=== PATIENT | female | born 1955 | race Caucasian/White ===

== ENCOUNTER → 2019-10-21 10:47 | Outpatient (CLI) | payer MEDICARE, BC, SELFPAY ==
--- NOTE | ~2019-10-21 | XR_ITS ---
XR hip RT 2V w AP pelvis DATE: 10/21/2019 11:11 INDICATION: Right hip pain for 2 years, worsening TECHNIQUE: AP pelvis. AP and lateral views of right hip. COMPARISON: None FINDINGS: No pelvic fracture or bone destruction is detected. The pubic symphysis and sacroiliac join ts are intact. There is mild right hip joint space narrowing and mild periarticular spurring at the right hip joint, consistent with osteoarthritis. No fracture or dislocation, avascular necrosis or bone destruction o f the right hip is detected. IMPRESSION: Right hip osteoarthritis Reviewed, dictated and finalized at location B. TALLIER IMPRESSION: Right hip osteoarthritis
== END ==
PROVIDERS: PCP Family Medicine; Visit Provider Family Medicine
DX: G89.29 Other chronic pain (principal); M16.11 Unilateral primary osteoarthritis, right hip
CPT/HCPCS: 73502; 73521

== ENCOUNTER → 2019-12-01 12:06 | Outpatient (CLI) | payer MEDICARE, BC, SELFPAY ==
--- NOTE | ~2019-12-01 | DEXA_ITS ---
Bone Density Report Name: Willow Arrington Age: 64 Sex: Female Ethnicity: White Date of : 1955 Indication: postmenopausal; screening for osteoporosis; height loss; inflammatory bowel disease; asthma or emphysema; Referring Provider: PHYSICIAN NOT ON STAFF Study: Bone densitometry was performed. Exam Date: December 01, 2019 Accession number: [id number] Bone Density: Region BMD T-score Z-score Classification AP Spine (L3, L4) 0.811 -2.6 -0.8 Osteoporosis Femoral Neck (Left) 0.858 0.1 1.6 Normal Total Hip (Left) 1.055 0.9 2.2 Normal Femoral Neck (Right) 0.799 -0.4 1.1 Normal Total Hip (Right) 0.987 0.4 1.6 Normal Total Hip Mean 1.021 0.7 1.9 Normal World Health Organization criteria for BMD impression classify patients as: Normal (T-score at or above -1.0), Osteopenia (T-score between -1.0 and -2.5), or Osteoporosis (T-score at or below -2.5). 10-year Fracture Risk: FRAX not reported because: Some T-score for Spine Total or Hip Total or Femoral Neck at or below -2.5 Clinical Information Provided by Patient: Has used the following medications: Vitamin D Has the following medical conditions: Asthma or Emphysema, Inflammatory bowel diseases Patient maximum height was 66 Menopause Age: 50 No regular weight bearing exercise Drinks caffeinated beverages Onset of menses at age 12 Number of children 0 Impression: The patient has osteoporosis, based on the Total Spine T-score. Discussion: INCREASED RISK OF FRACTURE. BONE DENSITY IS UNDESIRABLY LOW AT ONE OR MORE SKELETAL SITES, CONSISTENT WITH POSTMENOPAUSAL OSTEOPOROSIS. This patient's lowest T-score meets the World Health Organization's (WHO) criteria for osteoporosis at one or more sites (T-score -2.5 or below). In untreated patients, the risk of osteoporotic fracture increases approximately two-fold for each 1.0 SD decrease in T-score. Low bone density is not the only risk factor for fracture; also consider factors such as patient's age, frailty or poor health, risk of falling, risk of injury, previous osteoporotic fracture, family history of osteoporosis, cigarette smoking, low body weight, etc. Not everyone with low bone mineral density has osteoporosis; osteomalacia and other metabolic bone disorders should also be considered. Patients who have osteoporosis should be evaluated for specific diseases and conditions (secondary causes) that may cause or contribute to bone loss. The [place] [employer]ocrinologists (AACE) and National Osteoporosis Foundation (NOF) recommend pharmacologic intervention for all postmenopausal women whose T-score is in this range. The patient should follow a healthful lifestyle (good nutrition with adequate calcium and vitamin D, and appropriate weight-bearing exercise). Follow-Up: Consider a repeat BMD
--- NOTE | ~2019-12-01 | MM_ITS ---
EXAMINATION: MM screening [facility] BI w christian HISTORY: Screening mammogram TECHNIQUE: Craniocaudal and mediolateral oblique 3-D tomosynthesis images were obtained and synthetic 2-D images were generated. CAD analysis was submitted and interpreted. COMPARISON: Comparison to multiple prior studies sequentially, with oldest reviewed study dated 03/08. BREAST PARENCHYMAL COMPOSITION: FINDINGS: No significant change to a circumscribed mass upper inner quadrant of the right breast dati ng back to 2009. There are benign bilateral breast calcifications. There is no evidence of suspicious mass, calcification, or architectural distortion to suggest malignancy in either breast. There has b een no suspicious interval change. IMPRESSION: 1. No mammographic evidence of malignancy. 2. Recommend routine screening mammography in one year. BI-RADS Category 2: Benign finding(s). Reviewed, dictated and finalized at location A.
== END ==
PROVIDERS: PCP Family Medicine; Visit Provider Obstetrics & Gynecology
DX: Z12.31 Encounter for screening mammogram for malignant neoplasm of breast (principal); Z78.0 Asymptomatic menopausal state; M81.0 Age-related osteoporosis without current pathological fracture
CPT/HCPCS: 77063; 77067; 77080

== ENCOUNTER 2020-04-07 15:16 | Outpatient (CLI) | payer MEDICARE, BC, SELFPAY ==
--- NOTE | ~2020-04-07 | US_ITS ---
EXAMINATION: US venous doppler LE RT DATE: 04/07/2020 15:56 INDICATION: Right lower limb pain TECHNIQUE: Gonsales scale images without and with compression and Doppler images of the right lower extre mity veins were obtained. COMPARISON: None FINDINGS: The right common femoral vein, profunda femoral vein, femoral vein, popliteal vein, peronea l trunk, posterior tibial veins, and greater saphenous vein are patent. IMPRESSION: 1. Patent right lower extremity veins. No evidence of deep venous thrombosis. Reviewed, dictated and finalized at location A.
--- NOTE | ~2020-04-07 | US_ITS ---
EXAMINATION: US soft tissue LE RT INDICATION: Right lower limb cellulitis TECHNIQUE: High-resolution ultrasound of the right lower extremity is performed in the area of clinic al concern. COMPARISON: None available FINDINGS: There is subcutaneous edema of the leg in the area of clinical concern. No focal cystic or solid mass is identified. There is no evidence of abscess. IMPRESSION: 1. Sonographic findings compatible with cellulitis in the area of clinical concern. Reviewed, dictated and finalized at location A. IMPRESSION: 1. Sonographic findings compatible with cellulitis in the area of clinical conc arnoldo.
== END 2020-04-07 15:17 | disposition home or self-care (01) ==
LOC: ANHIMG 15:26
PROVIDERS: PCP Family Medicine; Visit Provider Physician Assistant
DX: L03.115 Cellulitis of right lower limb (principal); M79.604 Pain in right leg; M79.89 Other specified soft tissue disorders
CPT/HCPCS: 76882; 93971

== ENCOUNTER → 2020-10-24 14:08 | Outpatient (CLI) | payer MEDICARE, BC, SELFPAY ==
--- NOTE | ~2020-10-24 | MR_ITS ---
EXAMINATION: MR foot RT wo con DATE: 10/24/2020 15:12 INDICATION: Right hallux ulcer TECHNIQUE: Magnetic resonance imaging (MRI) of the right fore/mid foot was performed without intraven ous contrast. Sequences included sagittal T1-weighted FSE, sagittal fluid sensitive FSE STIR, coronal PD-weighted FS FSE, coronal T1-weighted FSE, axial PD-weighted FS FSE, and axial PD-weighted FSE. COMPARISON: None FINDINGS: Alignment is normal. Mild bunion with mild hypertrophic and cystic change at the medial head of the f irst metatarsal. No fracture, osteolysis or other pathologic marrow replacing process. Mild to modera te polyarticular osteoarthritis most prominent at the talonavicular, navicular medial cuneiform, seco nd and third tarsal metatarsal and first metatarsophalangeal joints and to lesser degree at many of t he additional joints in the mid and forefoot. No abscess, joint effusions or other abnormal fluid col lections. Moderate fatty atrophy of the intrinsic musculature of the foot. The visualized portions of the flexor and extensor tendons as well as the Lisfranc ligament and lateral ligament complex appear grossly intact although assessment is moderately limited by small amount of motion artifact on multi ple sequences. IMPRESSION: 1. No osteomyelitis or abscess. 2. Mild to moderate polyarticular osteoarthritis in the mid and forefoot. Reviewed, dictated and finalized at location A. RVISOR CORRESPONDENCE SECTION
== END ==
PROVIDERS: PCP Family Medicine
DX: L97.519 Non-pressure chronic ulcer of other part of right foot with unspecified severity (principal); M19.071 Primary osteoarthritis, right ankle and foot
CPT/HCPCS: 73718

== ENCOUNTER → 2021-04-18 07:22 | Outpatient (CLI) | payer MEDICARE, BC, SELFPAY ==
--- NOTE | ~2021-04-18 | US_ITS ---
EXAMINATION: US abdomen complete DATE: 04/18/2021 09:03 INDICATION: Abdominal swelling, palpable abnormalities in the bilateral lower quadrants TECHNIQUE: Multiple grayscale and Doppler ultrasound images of the abdomen were obtained. COMPARISON: None available FINDINGS: No sonographic correlate is identified for the reported palpable abnormalities of the abdom en. The head, body, and tail of the pancreas are normal. There is a 3.5 x 2.6 cm hypoechoic lesion in the left hepatic lobe. The liver is otherwise normal with normal echogenicity and echotexture. No arriaza rface nodularity. Normal hepatopetal flow in the main portal vein. There are multiple stones in the g allbladder. No pericholecystic fluid or gallbladder wall thickening is identified. The normal common bile duct measures 4 mm. There was no sonographic Lawson sign. The visualized portions of the aorta a nd inferior vena cava are normal. The right kidney measures 10.9 x 5.2 x 5.5 cm. The left kidney measures 9.8 x 5 x 4.1 cm. The kidneys demonstrate normal parenchymal echogenicity. There is no hydronephrosis. The spleen is normal in denise earance and measures 11.1 cm. IMPRESSION: 1. No sonographic correlate identified for the reported palpable abnormalities of the abdomen. 2. Hypoechoic liver lesion which is likely benign in the absence of known malignancy. Recommend corre lation with any available prior outside imaging. If none is available further evaluation by MRI witho ut and with contrast is recommended. Reviewed, dictated and finalized at location A. IMPRESSION: 1. No sonographic correlate identified for the reported palpable abnormalities of the abdomen. 2. Hypoechoic liver lesion which is likely benign in the absence of known malig lilliam. Recommend correlation with any available prior outside imaging. If none is available further evaluation by MRI without and with contrast is recommended .
== END ==
PROVIDERS: PCP Family Medicine
DX: R19.03 Right lower quadrant abdominal swelling, mass and lump (principal); K76.9 Liver disease, unspecified
CPT/HCPCS: 76700

== ENCOUNTER 2021-04-27 13:50 | Outpatient (CLI) | payer MEDICARE, BC, SELFPAY ==
--- NOTE | ~2021-04-27 | CT_ITS ---
EXAMINATION: CT abdomen pelvis wo/w con DATE: 04/27/2021 14:27 INDICATION: Liver lesion TECHNIQUE: Computed tomography (CT) of the abdomen was performed without intravenous contrast. CT of the abdomen was then performed with a total of 100 mL Omnipaque 350 intravenous contrast in the arter ial and of the abdomen and pelvis in the portal venous phase. The dose-length product (DLP) was 3328. 36 mGy-cm. Automated exposure control and iterative reconstruction technique were employed. COMPARISON: Ultrasound, 04/18/2021 FINDINGS: There is a subtle geographic area left hepatic lobe corresponding to the abnormality of con cern on the comparison ultrasound which has a CT appearance suggestive of focal fatty sparing. No mirna picious liver mass is identified. Minimal dependent atelectasis is present in the lung bases. The hea rt size is normal. There is a small sliding hiatal hernia. The spleen, pancreas, gallbladder, and adr enal glands are normal. There is no free intraperitoneal gas or evidence of bowel obstruction. There are changes of right hip arthroplasty. There is mild lumbar spondylosis. IMPRESSION: 1. CT findings most consistent with focal fatty sparing of the liver accounting for the ultrasound le celia in question. Reviewed, dictated and finalized at location B. IMPRESSION: 1. CT findings most consistent with focal fatty sparing of the liver accounting for the ultrasound lesion in question.
== END 2021-04-27 13:51 | disposition home or self-care (01) ==
LOC: ANHIMG 13:51
PROVIDERS: PCP Family Medicine
DX: K76.9 Liver disease, unspecified (principal)
CPT/HCPCS: 74178; Q9967

== ENCOUNTER 2021-10-23 10:50 | Emergency (ER) | payer MEDICARE, BC, SELFPAY ==
--- NOTE | ~2021-10-23 | XR_ITS ---
EXAMINATION: XR chest 2V EXAM DATE: 10/23/2021 11:31 INDICATION: SOB; hx of asthma . TECHNIQUE: Frontal and lateral projections of the chest obtained and reviewed. Comparison is made to prior examination from 05/19/2019. FINDINGS: The lungs are clear. There are no pleural effusions. The cardiomediastinal silhouette is within normal limits. There is no pneumothorax suspected. The bones and soft tissues are unremarkab le. Probable small to moderate-sized gastroesophageal hiatal hernia. There is no significant interv al change. IMPRESSION: No acute cardiopulmonary findings. Probable small to moderate hiatal hernia. Reviewed, dictated and finalized at location B. MOBILE TECHNICIAN IMPRESSION: No acute cardiopulmonary findings. Probable small to moderate hiata l hernia.
[2021-10-23 11:01] VITALS: BP 108/75; PULSE 118; RESP 20; TEMP 37; O2SAT 100
--- NOTE | 2021-10-23 11:07 | ED.URI ---
HPI - URI/Sore Throat General Chief Complaint: Shortness of Breath/Dyspnea Stated Complaint: Cough Time Seen by Provider: 10/23/21 11:07 Source: patient and RN notes reviewed History of Present Illness HPI Narrative: Patient is 66-year-old female who presents the urgent care with complaints of chronic cough, shortness of breath and wheezing. Patient states her cough is nonproductive. Denies of any fevers, nausea, vomiting. Denies of any chest pain. States that she has not her doctor and was placed on a Z-Emmanuel and nebulizers without any improvement. Patient states that she is short of breath with any type of exertion. Patient states that her doctor recently decreased her Lasix because her swelling had improved . States that her doctor told her that her lungs are clear and her peak flow is normal and therefore chest x-ray is not necessary . Patient states over the last week her symptoms have just gotten worse. Patient states that her doctor told her to go to the emergency room . No other acute complaints. Patient is visibly short of breath with exertion. Patient aware of the plan of care. Some parts of this dictation were generated by voice recognition software and may contain typographical and/or grammatical inaccuracies. Related Data Home Medications Medication Instructions Recorded Confirmed ascorbic acid (vitamin C) 500 mg mg PO 07/29/19 10/10/21 capsule clonazepam 1 mg tablet 1 mg PO DAILY 07/29/19 10/10/21 cranberry 500 mg capsule 500 mg PO BID 07/29/19 10/10/21 esomeprazole magnesium 40 mg 40 mg PO DAILY 07/29/19 10/10/21 capsule,delayed release ferrous sulfate 325 mg (65 mg 325 mg PO DAILY 07/29/19 10/10/21 iron) tablet fluoxetine 20 mg capsule 20 mg PO DAILY 07/29/19 10/10/21 fluticasone 250 mcg-salmeterol 50 1 inhalation INHALATION BID 07/29/19 10/10/21 mcg/dose blistr powdr for inhalation mesalamine 1.2 gram tablet,delayed 2.4 gm PO DAILY 07/29/19 10/10/21 release cholecalciferol (vitamin D3) 50 2,000 unit PO DAILY 12/31/19 10/10/21 mcg (2,000 unit) tablet fluticasone propionate 50 1 spray NASAL BID ml 12/31/19 10/10/21 mcg/actuation nasal spray,suspension nortriptyline 50 mg capsule 50 mg PO . q.h.s. cap 12/31/19 10/10/21 fluticasone 100 mcg-salmeterol 50 1 inhalation INHALATION Q12H 04/15/20 10/10/21 mcg/dose blistr powdr for inhalation chlorthalidone 25 mg tablet 25 mg PO 3XW tablet 05/09/21 10/10/21 furosemide 20 mg tablet 40 mg PO QAM tablet 05/09/21 10/10/21 cyanocobalamin (vitamin B-12) 500 1,000 mcg PO DAILY tablet 10/10/21 10/10/21 mcg tablet Allergies Allergy/AdvReac Type Severity Reaction Status Date / Time Cephalosporins Allergy Mild Unknown Verified 10/23/21 11:08 Penicillins Allergy Mild Unknown Verified 10/23/21 11:08 amoxicillin Allergy Unknown Itching Verified 10/23/21 11:08 CYMBALTA Allergy Mild Unknown Uncoded 10/23/21 11:08 Review of Systems Review of Systems: CONSTITUTIONAL: Denies fever, chills, or sweats. EYES: Denies visual changes, redness, or discharge. ENT: Denies rhinorrhea, congestion, sore throat, or otalgia. CARDIOVASCULAR: Denies chest pain, palpitations, or edema. RESPIRATORY: Reports of nonproductive cough with intermittent dyspnea, at worst with exertion GASTROINTESTINAL: Denies abdominal pain, nausea, vomiting, or diarrhea. GENITOURINARY: Denies dysuria or hematuria. SKIN: Denies rash or itching. MUSCULOSKELETAL: Denies back pain, joint pain, or myalgia. NEUROLOGIC: Denies headache, numbness, or weakness. All other systems reviewed are negative, except as documented in HPI. [facility] Past Medical History Medical History (Updated 10/23/21 @ 11:52 by EDEN Mattson) Cellulitis of right leg Chronic right hip pain Diabetes mellitus with hyperglycemia, with long-term current use of insulin Diastolic CHF, chronic Edema, peripheral Leukocytosis Pharyngitis Vitamin B12 deficiency anemia (09/21/21) level low at 266 with goal grea
== END 2021-10-23 11:59 | disposition home or self-care (01) ==
PROVIDERS: Emergency Provider Nurse Practitioner Family; PCP Family Medicine
DX: R06.02 Shortness of breath (principal); R05.9 Cough, unspecified; E11.9 Type 2 diabetes mellitus without complications; I50.9 Heart failure, unspecified; D51.9 Vitamin B12 deficiency anemia, unspecified
CPT/HCPCS: 71046; 99213; G0463

== ENCOUNTER → 2022-05-10 12:39 | Outpatient (CLI) | payer MEDICARE, BC, SELFPAY ==
--- NOTE | ~2022-05-10 | MM_ITS ---
EXAMINATION: MM screening [facility] BI w christian HISTORY: Screening TECHNIQUE: Craniocaudal and mediolateral oblique 3-D tomosynthesis images were obtained and synthetic 2-D images were generated. CAD analysis was submitted and interpreted. COMPARISON: Comparison to multiple prior studies sequentially, with oldest reviewed study dated 10/2013. BREAST PARENCHYMAL COMPOSITION: There are scattered areas of fibroglandular density. FINDINGS: Stable right breast mass. There are benign bilateral breast calcifications. No new masses, clustered calcifications or architectural distortion in either breast to suggest malignancy. There is no evidence of suspicious mass, calcification, or architectural distortion to suggest malignancy in either breast. There has been no suspicious interval change. IMPRESSION: 1. No mammographic evidence of malignancy. 2. Recommend routine screening mammography in one year. BI-RADS Category 2: Benign finding(s). Reviewed, dictated and finalized at location A.
== END ==
PROVIDERS: PCP Family Medicine; Visit Provider Obstetrics & Gynecology
DX: Z12.31 Encounter for screening mammogram for malignant neoplasm of breast (principal)
CPT/HCPCS: 77063; 77067

== ENCOUNTER → 2022-06-16 11:24 | Outpatient (CLI) | payer MEDICARE, BC, SELFPAY ==
--- NOTE | ~2022-06-16 | US_ITS ---
US right upper quadrant INDICATION: Fatty liver PROCEDURE: Realtime right upper abdominal ultrasound. COMPARISON: 04/18/2021 FINDINGS: The pancreas is normal without focal mass or pancreatic ductal dilation. Liver echotexture is increased, consistent with fatty infiltration. There is normal directional flow in the portal ve in. There are gallstones. No gallbladder wall thickening or pericholecystic fluid. Common bile duct christiano ures 3.6 mm. No sonographic Lawson's sign. IMPRESSION: 1: Cholelithiasis. 2: Hepatic steatosis. Reviewed, dictated and finalized at location A.
== END ==
PROVIDERS: PCP Family Medicine
DX: K76.0 Fatty (change of) liver, not elsewhere classified (principal); K80.20 Calculus of gallbladder without cholecystitis without obstruction
CPT/HCPCS: 76705

== ENCOUNTER 2023-12-06 09:15 | Outpatient (CLI) | payer MEDICARE, BC, SELFPAY ==
--- NOTE | ~2023-12-06 | US_ITS ---
Limited Abdominal Sonogram: Real-time sonographic imaging of the right upper quadrant was performed. Clinical History: Liver cyst Findings: The liver appears echogenic, with no evidence of mass lesion or bile duct dilatation. Main portal vein demonstrates normal direction of flow. The gallbladder is well distended, and contains s mall layering gallstones. No gallbladder wall thickening. The common bile duct measures 4 mm. The vi sualized pancreas, aorta, and IVC are unremarkable. Impression: Cholelithiasis. Diffuse fatty infiltration of liver. Reviewed, dictated and finalized at location M. Impression: Cholelithiasis. Diffuse fatty infiltration of liver.
== END 2023-12-06 09:16 ==
LOC: MICIMG 09:17
PROVIDERS: PCP Family Medicine
DX: K80.20 Calculus of gallbladder without cholecystitis without obstruction (principal); K76.0 Fatty (change of) liver, not elsewhere classified; K76.89 Other specified diseases of liver
CPT/HCPCS: 76705

== ENCOUNTER 2024-04-27 11:43 | Outpatient (CLI) | payer MEDICARE, BC, SELFPAY ==
--- NOTE | ~2024-04-27 | MM_ITS ---
EXAMINATION: MM screening [facility] BI w christian HISTORY: Screening TECHNIQUE: Craniocaudal and mediolateral oblique 3-D tomosynthesis images were obtained and synthetic 2-D images were generated. CAD analysis was submitted and interpreted. COMPARISON: Comparison to multiple prior studies sequentially, with oldest reviewed study dated 02/27. BREAST PARENCHYMAL COMPOSITION: Not dense: There are scattered areas of fibroglandular density. FINDINGS: Progressive decreased size of mass in the upper central aspect of the right breast. Left br east asymmetries are unchanged. There are benign bilateral breast calcifications. There is no evidenc e of suspicious mass, calcification, or architectural distortion to suggest malignancy in either [address]. There has been no suspicious interval change. IMPRESSION: 1. No mammographic evidence of malignancy. 2. Recommend routine screening mammography in one year. BI-RADS Category 2: Benign finding(s). Reviewed, dictated and finalized at location B.
== END 2024-04-27 11:44 ==
LOC: MICIMG 11:44
PROVIDERS: PCP Obstetrics & Gynecology; Visit Provider Family Medicine
DX: Z12.31 Encounter for screening mammogram for malignant neoplasm of breast (principal)
CPT/HCPCS: 77063; 77067

== ENCOUNTER 2025-01-27 14:46 | Emergency (ER) | payer MEDICARE, BC, SELFPAY ==
--- NOTE | ~2025-01-27 | XR_ITS ---
XR chest 2V Ordering provider: Fabio Michael APRN History: 69 years Female with . cough, sob for 2 weeks; hx of asthma, non smoker . Comparison: October 23, 2021 FINDINGS: MEDIASTINUM: The cardiac silhouette is slightly enlarged. Congested jayy. LUNGS: No infiltrates, effusions or pneumothorax. OTHER: No free air under the diaphragm. Degenerative changes of the spine. IMPRESSION: No acute cardiopulmonary pathology. Reviewed, dictated and finalized at location A.
[2025-01-27 15:11] VITALS: BP 134/89; PULSE 100; RESP 16; TEMP 36.6; O2SAT 100
--- NOTE | 2025-01-27 15:37 | ECG_ITS ---
Test Date: 2025-01-27 16:16:59 Measurements Intervals Hasty Rate: 92 P: 58 MD: 154 QRS: 18 QRSD: 89 T: 44 QT: 340 QTc: 422 Interpretive Statements SINUS RHYTHM WITH OCCASIONAL SUPRAVENTRICULAR PREMATURE COMPLEXES NONSPECIFIC T-WAVE ABNORMALITY No previous ECG available for comparison Electronically Signed On 01-27-2025 18:30:27 CDT by Latoya Chavez
[2025-01-27 15:40] VITALS: PULSE 110; RESP 22; O2SAT 98
--- NOTE | 2025-01-27 16:03 | ED.SOB ---
HPI - SOB/Dyspnea General Chief Complaint: Upper Respiratory Infection Stated Complaint: sob,wheezing Source: patient Mode of arrival: ambulatory Limitations: no limitations History of Present Illness HPI Narrative: 69-year-old female presents Express Care complaining of shortness of breath with exertion. Patient reports for the last 2 weeks she has felt more short of breath when she is exerting herself at home. Patient has a history of asthma, fibromyalgia, diabetes, and diastolic heart failure. Patient denies any shortness of breath when lying flat. Patient denies any chest pain, fevers, body aches, chills. Patient reports having a dry nonproductive cough and congestion as well over the last 2 weeks. Patient denies any other respiratory symptoms. Patient denies any recent surgeries or any history of blood clots. Patient denies any leg swelling. Patient recently switched inhalers for her asthma and states that she is out of for DuoNeb nebulizer treatment because it has . Patient does use her prescribed inhaler daily. Patient states she feels like she is wheezing when she is up walking around. Related Data Home Medications Medication Instructions Recorded Confirmed Last Taken Type clonazepam 1 mg tablet 1 mg PO QID 07/29/19 01/20/25 Unknown History cranberry 500 mg capsule 500 mg PO BID 07/29/19 01/20/25 Unknown History esomeprazole magnesium 40 mg 40 mg PO DAILY 07/29/19 01/20/25 Unknown History capsule,delayed release (Nexium) fluoxetine 20 mg capsule (Prozac) 20 mg PO DAILY 07/29/19 01/20/25 Unknown History mesalamine 1.2 gram tablet,delayed 2.4 gm PO DAILY 07/29/19 01/20/25 Unknown History release (Lialda) cholecalciferol (vitamin D3) 50 1,000 unit PO DAILY 12/31/19 01/20/25 Unknown History mcg (2,000 unit) tablet fluticasone propionate 50 1 spray intranasal BID 12/31/19 01/20/25 Unknown History mcg/actuation nasal spray,suspension (Flonase Allergy Relief) nortriptyline 50 mg capsule 50 mg PO . q.h.s. 12/31/19 01/20/25 Unknown History albuterol sulfate 90 mcg/actuation 1 mcg inhalation PRN PRN Cough 10/23/21 01/20/25 Unknown History aerosol inhaler furosemide 20 mg tablet (Lasix) 40 mg PO BID 11/07/21 01/20/25 Unknown History cannabis [employer] 10/11/22 01/20/25 Unknown History ferrous sulfate 325 mg (65 mg 325 mg PO BID 10/11/22 01/20/25 Unknown History iron) tablet (FeroSul) Medical Cannibis Gummies [employer] 11/21/22 01/20/25 Unknown History L.acid,ambar-B.animal,bifid,infant cap PO 11/12/23 01/20/25 Unknown History 50 billion cell capsule,delayed rel ([employer] [place] [employer] Probiotic) azelastine 137 mcg-fluticasone 50 intranasal 02/20/24 01/20/25 Unknown History mcg/spray nasal spray Allergies Allergy/AdvReac Type Severity Reaction Status Date / Time Cephalosporins Allergy Mild Unknown Verified 01/20/25 08:45 Penicillins Allergy Mild Unknown Verified 01/20/25 08:45 amoxicillin Allergy Unknown Itching Verified 01/20/25 08:45 CYMBALTA Allergy Mild Unknown Uncoded 01/20/25 08:45 Review of Systems Review of Systems: CONSTITUTIONAL: Denies fever, chills, body aches, or sweats. EYES: Denies visual changes, redness, or discharge. ENT: Positive for rhinorrhea, congestion, sore throat, or otalgia. CARDIOVASCULAR: Denies chest pain, palpitations, syncope, orthopnea, or edema. RESPIRATORY: Positive for cough and dyspnea. GASTROINTESTINAL: Denies abdominal pain, nausea, vomiting, or diarrhea. GENITOURINARY: Denies dysuria or hematuria. SKIN: Denies rash or itching. MUSCULOSKELETAL: Denies back pain, joint pain, or myalgia. NEUROLOGIC: Denies headache, numbness, or weakness. PSYCHIATRIC: Denies anxiety or depression. All other systems reviewed are negative, except as documented in HPI. [facility] Past Medical History Medical History Trigger thumb of left hand Subluxation of carpometacarpal joint of left thumb, sequela Screening for diabetic retinopathy no diabetic retinopathy 10/16/2024. Breast cancer screening by mammogram normal mammogram 03/27/2024. Fatty liver diffuse fatty liver on abdominal ultrasound 12/06/2023 with gallstones. No liver cyst mentioned. AST 12 with AST 11 on 04/10/2024. 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 Chronic pain of left knee Morbid obesity with BMI of 50.0-59.9, adult Pharyngitis Leukocytosis Hemoglobin 12.3 with metamyelocytes 09/21/2021. Hemoglobin 12.8 on 04/20/2022. WBC 13.3 with hemoglobin 11.7, platelets 433 with 3% myelocytes on 10/03/2022. Hemoglobin 11.0 on 04/10/2024. Vitamin B12 deficiency anemia (09/21/21) level low at 266 with goal greater than 400. Level normal at greater than 2000 with hemoglobin 11.7 on 10/03/2022. Diastolic CHF, chronic Edema, peripheral Diabetes mellitus with hyperglycemia, with long-term current use of insulin Fasting glucose 150 with hemoglobin A1c 7.6 on 04/20/2022. Fasting glucose 151 with hemoglobin A1c 6.9 on 10/03/22. glucose 163 with hemoglobin A1c 6.7 on 01/24/2023. Fasting glucose 91 on 04/10/2024. Hemoglobin A1c 6.4 on 05/28/2024. Hemoglobin A1c 6.6 with a random glucose 102 on 09/30/2024. Morbid obesity with BMI of 45.0-49.9, adult Open toe wound Cellulitis of right leg Chronic right hip pain Body mass index (BMI) 40.0-44.9, adult (01/06/19) Persistent cough Shortness of breath Surgical History Surgical History Status post hip surgery right hip History of musculoskeletal system surgery Trapeziectomy with LRTI - 2014, partial resection left interphalangeal joint halux -2016, Left great toe surgery (resection recurrent spur and removal of bone behind joint - 2018 H/O dilation and curettage D&C removal of cervical and uterine benign polyp 2011 Hx of carpal tunnel repair 2006 H/O arthroscopy of knee Right knee - September 2004 Hx of repair of right rotator cuff 2002 Hx of repair of left rotator cuff 2003 Hx of breast biopsy Right breast punch biopsy (benign findings) in 1999 Hx of post-sterilization tuboplasty Hx of arthroscopy of knee Left knee - 1983 S/P tonsillectomy and adenoidectomy As a child Family History Family History Father Depression Hypertension Family history of alcoholism Acute myocardial infarction, Onset Age: 65 Sibling Depression Family history of migraine headaches Patient's sister is in good health Mother Family history of migraine headaches Family history of lymphoma, Onset Age: 65 Family history of lupus erythematosus Grandparent Family history of alcoholism Cerebrovascular accident, Onset Age: 80 Social History Social History Smoking status: Never smoker Alcohol intake: never Substance use: never Substance use type: does not use Lack of Transportation: No Lack of Food: Never True Current Housing: I Have Housing Concerned About Future Housing: No Difficulty Paying Gas/Electric Bills: No Difficulty Paying for Meds: No Currently Unemployed: No Education: Trade/Vocational Certificate Difficulty w/ Childcare or Family Care: No Comments At the time of my signature, I reviewed and agree with the nursing past medical, surgical, social, and family history. There is no relevant family history pertinent to the patient complaint. Exam Narrative: GENERAL: This is a well-nourished, well-developed adult, in no apparent distress. They are non ill-appearing, nontoxic appearing. HEAD: normocephalic, atraumatic. EYES: Sclera clear/white. Vision is grossly intact. Conjunctiva normal bilaterally. Extraocular movements intact. EARS: External ears normal, auditory canals clear and without drainage, TMs without erythema or perforation. Hearing grossly intact. NOSE: External nose normal with no obvious nasal discharge, nasal turbinates erythematous, no rhinorrhea. THROAT: Mucous membranes moist, posterior pharynx erythemic without exudate. Uvula is midline. Postnasal drip present. NECK: Neck supple, non-tender without lymphadenopathy, masses or thyromegaly. CARDIOVASCULAR: Regular rate and rhythm with midsystolic murmur, no gallops, clicks, or rubs. Normal S1 and S2. RESPIRATORY: Diminished in bilateral lower lobes. Breath sounds equal bilaterally. No wheezes, rales, or rhonchi. Respiratory rate normal, respiratory effort nonlabored, no respiratory distress SKIN: warm, Dry, intact with no suspicious lesions or rash, good texture and turgor. NEURO: awake, alert, and oriented to person, place and time. There were no obvious focal neurologic abnormalities. EXTREMITIES: No joint tenderness, palpable cords, effusion, or edema noted. BACK: Nontender without deformity. Course Course Emergency Course: Portions of this record may have been created with voice recognition software Level of Care: Express Care Visit Vital Signs Vital signs: Vital Signs Temperature 97.8 F 01/27/25 15:11 Pulse Rate 100 01/27/25 15:11 Respiratory Rate 16 01/27/25 15:11 Blood Pressure 134/89 01/27/25 15:11 Pulse Oximetry 100 01/27/25 15:11 Temperature 97.8 F 01/27/25 15:11 Pulse Rate 100 01/27/25 15:11 Respiratory Rate 16 01/27/25 15:11 Blood Pressure 134/89 01/27/25 15:11 Pulse Oximetry 100 01/27/25 15:11 MDM - SOB/Dyspnea MDM Narrative Medical decision making narrative: Walking pulse ox was unremarkable. Patient's O2 saturation remained above 97%. EKG unremarkable without ischemic findings. No evidence CHF exacerbation. No evidence of fluid retention. Wells score is 0 for DVT or PE. Chest x-ray was clear without any evidence of pneumonia or pulmonary edema, or any other acute findings. Patient did have diminished lung sounds bilaterally. Patient was given a dose of albuterol nebulizer and reports that she feels like her breathing is much better. Repeat auscultation shows improved aeration to the lower lobes. Through shared decision making with patient she was offered ER transfer for further evaluation of her symptoms and she declined and patient has agreed to have close follow-up with PCP. Patient has the mental capacity and understanding to make informed medical decisions for herself. Given the patient's length of her upper respiratory symptoms, cough, shortness of breath is likely she has developed a sinusitis that is aggravating her asthma. Will prescribe doxycycline as she is allergic to penicillins and cephalosporins. Patient says her DuoNeb nebulizer is , will refill patient's prescription. Will also give patient a low dose short course of prednisone for her asthma symptoms since she is diabetic. Her last A1c was 6.4% she states. Advised patient to monitor blood sugar closely. Discussed physical exam findings. Anticipatory guidance given. Strict ER precautions discussed. Patient's vital signs are stable. Patient is stable and appropriate for outpatient follow-up. Differential Diagnosis Differential diagnosis: Likely congestive heart failure, community acquired pneumonia, asthma with exacerbation and other (Sinusitis) Imaging Data Radiologist's impression: ITS Impressions Chest X-Ray 01/27/25 16:09 IMPRESSION: No acute cardiopulmonary pathology. ECG Data EKG #1: Attestation: I personally reviewed and interpreted this ECG as follows: ECG completion date: 01/27/25 ECG completion time: 16:16 Prior ECG tracings: available for review EKG Interpretation: normal rate, sinus rhythm, normal QRS and no acute changes Discharge Plan Discharge Clinical Impression: Sinusitis Qualifiers: Sinusitis location: unspecified location Chronicity: acute Recurrence: non-recurrent Qualified Code(s): J01.90 - Acute sinusitis, unspecified Asthma Qualifiers: Asthma severity: mild Asthma persistence: intermittent Asthma complication type: with acute exacerbation Qualified Code(s): J45.21 - Mild intermittent asthma with (acute) exacerbation Patient Disposition: Home Condition: Stable Instructions: Antibiotic Form, Asthma (ED), Sinusitis (ED) Additional Instructions: Your EKG was normal today. Her chest x-ray was negative for any signs of pneumonia or any acute findings. It appears he may have a sinus infection this exacerbated her asthma. Please take doxycycline as directed. Please wear sunscreen appeared to be outside while taking doxycycline. Use your inhaler as directed. Use your nebulizer as directed as well. Take the prednisone as directed. Take it in the morning and take it with food. Please follow-up with primary care provider in 3-5 days. If you develop any chest pain, worsening shortness of breath, shortness of breath while lying flat flat, leg swelling, unable to catch her breath please go to the ER immediately. Patient Language: Bulgarian Prescriptions: New ipratropium-albuterol 0.5 mg-3 mg(2.5 mg base)/3 mL solution for nebulization 3 ml inhalation QID PRN (Reason: shortness of breath or wheezing) Qty: 90 0RF prednisone 20 mg tablet 20 mg PO DAILY 4 Days Qty: 4 0RF doxycycline monohydrate 100 mg capsule 100 mg PO BID 7 Days Qty: 14 0RF No Action albuterol sulfate 90 mcg/actuation HFA aerosol inhaler 1 mcg INHALATION PRN PRN (Reason: Cough) Medical Cannibis Gummies [facility] Rx Instructions: 1/4 gummies for pain glucose 4 gram tablet,chewable 16 g PO Q15M PRN (Reason: hypoglycemia) Qty: 90 0RF Rx Instructions: until symptoms of low blood sugar are controlled levothyroxine [Synthroid] 137 mcg tablet 137 mcg PO DAILY Qty: 90 4RF (DME) True Metrix Glucose Test Strip Strip See Rx Instructions .ROUTE .MEDSUPPLY Qty: 100 11RF Rx Instructions: use to check blood sugar 3 times daily cholecalciferol (vitamin D3) 50 mcg (2,000 unit) tablet 1,000 unit PO DAILY fluticasone propionate [Flonase Allergy Relief] 50 mcg/actuation spray,suspension 1 spray NASAL BID nortriptyline 50 mg capsule 50 mg PO . q.h.s. famotidine 20 mg tablet 20 mg PO QHS Qty: 90 3RF ferrous sulfate [FeroSul] 325 mg (65 mg iron) tablet 325 mg PO BID cannabis [facility] [employer] [place] [employer] Probiotic 50 billion cell capsule,delayed release(DR/EC) PO azelastine-fluticasone 137-50 mcg/spray spray,non-aerosol intranasal Baqsimi 3 mg/actuation spray,non-aerosol 3 mg intranasal ONCE Qty: 2 0RF Rx Instructions: as a single dose metformin 500 mg tablet extended release 24 hr 2,000 mg PO QACDINNER Qty: 360 3RF rosuvastatin 5 mg tablet 5 mg PO .twice weekly Qty: 90 1RF Rx Instructions: 5 mg twice weekly cranberry 500 mg capsule 500 mg PO BID fluoxetine [Prozac] 20 mg capsule 20 mg PO DAILY esomeprazole magnesium [Nexium] 40 mg capsule,delayed release(DR/EC) 40 mg PO DAILY clonazepam 1 mg tablet 1 mg PO QID mesalamine [Lialda] 1.2 gram tablet,delayed release (DR/EC) 2.4 gm PO DAILY (DME) Insulin Syringe MicroFine 1 mL 27 gauge x 5/8 syringe See Rx Instructions .ROUTE .MEDSUPPLY Qty: 100 3RF Rx Instructions: use to take insulin furosemide [Lasix] 20 mg tablet 40 mg PO BID Rx Instructions: prescribed by crutch maker irbesartan 300 mg tablet 300 mg PO DAILY Qty: 90 3RF Rx Instructions: replaces quinapril methocarbamol 750 mg tablet 750 mg PO QID PRN (Reason: spasm) Qty: 360 3RF zolpidem 10 mg tablet 10 mg PO . Q.h.s. PRN (Reason: insomnia) Qty: 90 1RF insulin glargine [Basaglar KwikPen U-100 Insulin] 100 unit/mL (3 mL) insulin pen 50 unit subcut QAM Qty: 60 2RF pramipexole 0.75 mg tablet 0.75 mg PO QHS Qty: 90 3RF gabapentin 400 mg capsule 400 mg PO TID Qty: 270 3RF amlodipine 5 mg tablet 5 mg PO DAILY Qty: 90 3RF hydrocodone-acetaminophen 5-325 mg tablet 1 tablet PO Q6H PRN (Reason: pain) Qty: 60 0RF (DME) lancets 33 gauge misc See Rx Instructions .ROUTE .MEDSUPPLY Qty: 100 11RF Rx Instructions: use to check blood sugar 3 times daily pen needle, diabetic 31 gauge x 3/16 needle See Rx Instructions .ROUTE .COMPLEX Qty: 200 11RF Dose Instruction: USE DIRECTED Rx Instructions: use four times daily as directed; tramadol 50 mg tablet See Rx Instructions PO Q6H PRN (Reason: pain) Qty: 360 1RF Rx Instructions: 1 or 2 tablets PO every 6 hours PRN; Mounjaro 10 mg/0.5 mL pen injector 10 mg subcut WEEKLY Qty: 2 0RF Follow-up/Referrals: Sim Quintana MD [Primary Care Provider] - Time of Disposition: 17:14
--- NOTE | 2025-01-27 16:20 | PC.NURSE ---
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 distance was approx 250ft, and heart rate stayed consistent 112-115, and pulse ox remained at 98% - no coughing while walking. [employer]EDGE MACHINE OPERATOR HELPER informed of results.
[2025-01-27] MEDS: ALBUTEROL SULFATE NEB 2.5 MG/3 ML INH INHALATION (16:47)
[2025-01-27 17:10] VITALS: PULSE 84; RESP 18; O2SAT 97
== END 2025-01-27 17:18 | disposition home or self-care (01) ==
PROVIDERS: PCP Family Medicine
DX: J32.9 Chronic sinusitis, unspecified (principal); J45.21 Mild intermittent asthma with (acute) exacerbation; E11.9 Type 2 diabetes mellitus without complications; Z79.4 Long term (current) use of insulin; Z79.84 Long term (current) use of oral hypoglycemic drugs; Z79.85 Long-term (current) use of injectable non-insulin antidiabetic drugs; M79.7 Fibromyalgia; K76.0 Fatty (change of) liver, not elsewhere classified; E66.01 Morbid (severe) obesity due to excess calories; Z68.42 Body mass index [BMI] 45.0-49.9, adult; G60.0 Hereditary motor and sensory neuropathy; I50.32 Chronic diastolic (congestive) heart failure
CPT/HCPCS: 71046; 93005; 94640; 99213; G0463

== ENCOUNTER 2025-05-07 12:15 | Emergency (ER) | payer MEDICARE, BC, SELFPAY ==
[2025-05-07 12:23] VITALS: BP 148/86; PULSE 114; RESP 16; TEMP 36.3; O2SAT 99
--- NOTE | 2025-05-07 12:37 | ED.GENADULT ---
HPI - General Adult General Chief complaint: Upper Respiratory Infection Stated complaint: Cough Source: patient Mode of arrival: ambulatory Limitations: no limitations History of Present Illness HPI narrative: 69 y/o female with hx DM presented for c/o cough x5 days. Endorses green or yellow sputum. Denies increase in sob from baseline, wheezing, n/v/d/f/c. Says symptoms worsened after a severe episode of reflux one week ago, which felt like burning and caused her to cough. Related Data Home Medications ?Medication ?Instructions ?Recorded ?Confirmed ?Last Taken ?Type clonazepam 1 mg tablet 1 mg PO QID 07/29/19 02/24/25 Unknown History cranberry 500 mg capsule 500 mg PO BID 07/29/19 02/24/25 Unknown History esomeprazole magnesium 40 mg 40 mg PO DAILY 07/29/19 02/24/25 Unknown History capsule,delayed release (Nexium) fluoxetine 20 mg capsule (Prozac) 20 mg PO DAILY 07/29/19 02/24/25 Unknown History mesalamine 1.2 gram tablet,delayed 2.4 gm PO DAILY 07/29/19 02/24/25 Unknown History release (Lialda) cholecalciferol (vitamin D3) 50 1,000 unit PO DAILY 12/31/19 02/24/25 Unknown History mcg (2,000 unit) tablet nortriptyline 50 mg capsule 50 mg PO . q.h.s. 12/31/19 02/24/25 Unknown History furosemide 20 mg tablet (Lasix) 40 mg PO BID 11/07/21 02/24/25 Unknown History ferrous sulfate 325 mg (65 mg 325 mg PO BID 10/11/22 02/24/25 Unknown History iron) tablet (FeroSul) L.acid,ambar-B.animal,bifid,infant cap PO 11/12/23 02/24/25 Unknown History 50 billion cell capsule,delayed rel ([employer] [place] [employer] Probiotic) albuterol 90 mcg-budesonide 80 2 inh inhalation ONCE 02/24/25 02/24/25 Unknown History mcg/actuation HFA aerosol inhaler (Airsupra) fluticasone fur. 100 mcg-umeclid 1 inh inhalation DAILY 02/24/25 02/24/25 Unknown History 62.5 mcg-vilant 25 mcg inhalat.powder (Trelegy Ellipta) gabapentin 400 mg capsule 400 mg PO BID 02/24/25 02/24/25 Unknown History dupilumab 300 mg/2 mL subcutaneous mg subcut 05/07/25 Unknown History pen injector (Dupixent) tirzepatide 7.5 mg/0.5 mL mg subcut 05/07/25 Unknown History subcutaneous pen injector (Mounjaro) Allergies Allergy/AdvReac Type Severity Reaction Status Date / Time Cephalosporins Allergy Mild Unknown Verified 02/24/25 08:57 Penicillins Allergy Mild Unknown Verified 02/24/25 08:57 amoxicillin Allergy Unknown Itching Verified 02/24/25 08:57 CYMBALTA Allergy Mild Unknown Uncoded 02/24/25 08:57 Review of Systems Review of Systems: CONSTITUTIONAL: Denies body aches, fever, chills, or sweats. EYES: Denies visual changes, redness, or discharge. ENT: Denies rhinorrhea, congestion, sore throat, or otalgia. CARDIOVASCULAR: Denies chest pain, palpitations, or edema. RESPIRATORY: Reports cough, denies sob, wheezing. GASTROINTESTINAL: Denies abdominal pain, nausea, vomiting, or diarrhea. SKIN: Denies rash, itching, or wounds. MUSCULOSKELETAL: Denies back pain, joint pain, or myalgia. NEUROLOGIC: Denies headache, numbness, tingling, or weakness. PSYCH: Denies depression or anxiety. All systems reviewed & are unremarkable except as noted in HPI and below PMFSH Past Medical History Medical History Morbid obesity with BMI of 45.0-49.9, adult Trigger thumb of left hand Subluxation of carpometacarpal joint of left thumb, sequela Screening for diabetic retinopathy no diabetic retinopathy 10/16/2024. Breast cancer screening by mammogram normal mammogram 03/27/2024. Fatty liver diffuse fatty liver on abdominal ultrasound 12/06/2023 with gallstones. No liver cyst mentioned. AST 12 with AST 11 on 04/10/2024. 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 left foot and ankle diagnosed by actuarial manager. Chronic pain of left knee Morbid obesity with BMI of 50.0-59.9, adult Pharyngitis Leukocytosis Hemoglobin 12.3 with metamyelocytes 09/21/2021. Hemoglobin 12.8 on 04/20/2022. WBC 13.3 with hemoglobin 11.7, platelets 433 with 3% myelocytes on 10/03/2022. Hemoglobin 11.0 on 04/10/2024. Vitamin B12 deficiency anemia (09/21/21) level low at 266 with goal greater than 400. Level normal at greater than 2000 with hemoglobin 11.7 on 10/03/2022. Diastolic CHF, chronic Edema, peripheral Diabetes mellitus with hyperglycemia, with long-term current use of insulin Fasting glucose 150 with hemoglobin A1c 7.6 on 04/20/2022. Fasting glucose 151 with hemoglobin A1c 6.9 on 10/03/22. glucose 163 with hemoglobin A1c 6.7 on 01/24/2023. Fasting glucose 91 on 04/10/2024. Hemoglobin A1c 6.4 on 05/28/2024. Hemoglobin A1c 6.6 with a random glucose 102 on 09/30/2024. Open toe wound Cellulitis of right leg Chronic right hip pain Body mass index (BMI) 40.0-44.9, adult (01/06/19) Persistent cough Shortness of breath Surgical History Surgical History Status post hip surgery right hip History of musculoskeletal system surgery Trapeziectomy with LRTI - 2014, partial resection left interphalangeal joint halux -2016, Left great toe surgery (resection recurrent spur and removal of bone behind joint - 2018 H/O dilation and curettage D&C removal of cervical and uterine benign polyp 2011 Hx of carpal tunnel repair 2006 H/O arthroscopy of knee Right knee - September 2004 Hx of repair of right rotator cuff 2001 Hx of repair of left rotator cuff 2002 Hx of breast biopsy Right breast punch biopsy (benign findings) in 1999 Hx of post-sterilization tuboplasty Hx of arthroscopy of knee Left knee - 1983 S/P tonsillectomy and adenoidectomy As a child Family History Family History Father Depression Hypertension Family history of alcoholism Acute myocardial infarction, Onset Age: 65 Sibling Depression Family history of migraine headaches Patient's sister is in good health Mother Family history of migraine headaches Family history of lymphoma, Onset Age: 65 Family history of lupus erythematosus Grandparent Family history of alcoholism Cerebrovascular accident, Onset Age: 80 Social History Social History Smoking status: Never smoker Alcohol intake: never Substance use: never Substance use type: does not use Lack of Transportation: No Lack of Food: Never True Current Housing: I Have Housing Concerned About Future Housing: No Difficulty Paying Gas/Electric Bills: No Difficulty Paying for Meds: No Currently Unemployed: No Education: Trade/Vocational Certificate Difficulty w/ Childcare or Family Care: No Comments At time of signature, I have reviewed and agree with nursing past medical, surgical, social and family history unless otherwise noted. Please see nursing chart for further information. There is no relevant family history pertinent to the presenting complaint Exam Narrative: GENERAL: Well-appearing, in no acute distress. EYES: EOMI. No redness or drainage. Conjunctivae normal. ENT: Mucous membranes pink and moist. No rhinorrhea. TMs normal bilaterally. Throat normal. Uvula midline. NECK: Normal AROM. Supple. CHEST: No respiratory distress, speaks full sentences. lungs clear to all gallegos. Occasional cough. HEART: Regular rate and rhythm. No murmur appreciated. ABDOMEN: Soft, nontender, nondistended, normal active bowel sounds. EXTREMITIES: Normal range of motion. No edema. SKIN: Warm, dry, no rash. Capillary refill normal. Normal skin turgor. NEURO: Alert and oriented x3. Gait steady. PSYCH: Normal affect. Course Course Emergency Course: Patient is aware of diagnosis, understands and agrees to treatment plan. Anticipatory guidance given. Patient agrees to follow-up as directed and is aware of reasons to seek care at the emergency department. Portions of this record may have been created with voice recognition software Level of Care: Express Care Visit Vital Signs Vital signs: Vital Signs Temperature 97.3 F L 05/07/25 12:23 Pulse Rate 114 H 05/07/25 12:23 Respiratory Rate 16 05/07/25 12:23 Blood Pressure 148/86 H 05/07/25 12:23 Pulse Oximetry 99 05/07/25 12:23 Oxygen Delivery Room Air 05/07/25 12:23 Temperature 97.3 F L 05/07/25 12:23 Pulse Rate 114 H 05/07/25 12:23 Respiratory Rate 16 05/07/25 12:23 Blood Pressure 148/86 H 05/07/25 12:23 Pulse Oximetry 99 05/07/25 12:23 Oxygen Delivery Room Air 05/07/25 12:23 Medical Decision Making MDM Narrative Medical decision making narrative: Discussed physical exam findings, shared decision-making patient declined imaging at this time. Rx azithromycin. Advised supportive measures and signs/symptoms to go to the ER. Pt is appropriate for outpt treatment and f/u. Differential Diagnosis Differential Diagnosis: Influenza, covid, sinusitis, OM, strep pharyngitis, URI, bronchitis, pneumonia, GERD Vital Signs Vital Signs: Vital Signs Temperature 97.3 F L 05/07/25 12:23 Pulse Rate 114 H 05/07/25 12:23 Respiratory Rate 16 05/07/25 12:23 Blood Pressure 148/86 H 05/07/25 12:23 Pulse Oximetry 99 05/07/25 12:23 Oxygen Delivery Room Air 05/07/25 12:23 Temperature 97.3 F L 05/07/25 12:23 Pulse Rate 114 H 05/07/25 12:23 Respiratory Rate 16 05/07/25 12:23 Blood Pressure 148/86 H 05/07/25 12:23 Pulse Oximetry 99 05/07/25 12:23 Oxygen Delivery Room Air 05/07/25 12:23 Discharge Plan Discharge Clinical Impression: Acute lower respiratory infection Patient Disposition: Home Condition: Stable Instructions: Antibiotic Form, Acute Bronchitis (ED) Additional Instructions: Take medication as directed Continue antihistamine as previously prescribed over the counter Cough syrup may cause drowsiness; avoid driving or take it at night time. Sugar free if you have diabetes; Coricidin HBP if you have hypertension Tylenol every 8 hours as needed for pain rest, push fluids, and increase humidity of the air at home. Follow up with your primary care provider as needed in 1 week Go to the ER for worsening symptoms or concerns Patient Language: Cambodian Prescriptions: New azithromycin [Zithromax Z-Emmanuel] 250 mg tablet See Rx Instructions .ROUTE .COMPLEX Qty: 6 0RF Rx Instructions: For 250 mg dose pack: take 500 mg today (day 1), then 250 mg for 4 days (days 2-5) No Action Dupixent Pen 300 mg/2 mL pen injector SUBCUT Mounjaro 7.5 mg/0.5 mL pen injector SUBCUT glucose 4 gram tablet,chewable 16 g PO Q15M PRN (Reason: hypoglycemia) Qty: 90 0RF Rx Instructions: until symptoms of low blood sugar are controlled levothyroxine [Synthroid] 137 mcg tablet 137 mcg PO DAILY Qty: 90 4RF Trelegy Ellipta 100-62.5-25 mcg blister with device 1 inh inhalation DAILY gabapentin 400 mg capsule 400 mg PO BID Airsupra 90-80 mcg/actuation HFA aerosol inhaler 2 inh inhalation ONCE Rx Instructions: as a single dose; may repeat up to 6 doses per day (12 inhalations) insulin degludec [Tresiba FlexTouch U-100] 100 unit/mL (3 mL) insulin pen 50 unit subcut DAILY Qty: 45 2RF (DME) True Metrix Glucose Test Strip Strip See Rx Instructions .ROUTE .MEDSUPPLY Qty: 100 11RF Rx Instructions: use to check blood sugar 3 times daily cholecalciferol (vitamin D3) 50 mcg (2,000 unit) tablet 1,000 unit PO DAILY nortriptyline 50 mg capsule 50 mg PO . q.h.s. famotidine 20 mg tablet 20 mg PO QHS Qty: 90 3RF ferrous sulfate [FeroSul] 325 mg (65 mg iron) tablet 325 mg PO BID [employer] [place] [employer] Probiotic 50 billion cell capsule,delayed release(DR/EC) PO Baqsimi 3 mg/actuation spray,non-aerosol 3 mg intranasal ONCE Qty: 2 0RF Rx Instructions: as a single dose metformin 500 mg tablet extended release 24 hr 2,000 mg PO QACDINNER Qty: 360 3RF rosuvastatin 5 mg tablet 5 mg PO .twice weekly Qty: 90 1RF Rx Instructions: 5 mg twice weekly cranberry 500 mg capsule 500 mg PO BID fluoxetine [Prozac] 20 mg capsule 20 mg PO DAILY esomeprazole magnesium [Nexium] 40 mg capsule,delayed release(DR/EC) 40 mg PO DAILY clonazepam 1 mg tablet 1 mg PO QID mesalamine [Lialda] 1.2 gram tablet,delayed release (DR/EC) 2.4 gm PO DAILY (DME) Insulin Syringe MicroFine 1 mL 27 gauge x 5/8 syringe See Rx Instructions .ROUTE .MEDSUPPLY Qty: 100 3RF Rx Instructions: use to take insulin furosemide [Lasix] 20 mg tablet 40 mg PO BID Rx Instructions: prescribed by instrument designer methocarbamol 750 mg tablet 750 mg PO QID PRN (Reason: spasm) Qty: 360 3RF pramipexole 0.75 mg tablet 0.75 mg PO QHS Qty: 90 3RF amlodipine 5 mg tablet 5 mg PO DAILY Qty: 90 3RF (DME) lancets 33 gauge misc See Rx Instructions .ROUTE .MEDSUPPLY Qty: 100 11RF Rx Instructions: use to check blood sugar 3 times daily pen needle, diabetic 31 gauge x 3/16 needle See Rx Instructions .ROUTE .COMPLEX Qty: 200 11RF Dose Instruction: USE DIRECTED Rx Instructions: use four times daily as directed; tramadol 50 mg tablet See Rx Instructions PO Q6H PRN (Reason: pain) Qty: 360 1RF Rx Instructions: 1 or 2 tablets PO every 6 hours PRN; irbesartan 300 mg tablet 300 mg PO DAILY Qty: 90 3RF Rx Instructions: replaces quinapril zolpidem 10 mg tablet 10 mg PO . Q.h.s. PRN (Reason: insomnia) Qty: 90 1RF Mounjaro 12.5 mg/0.5 mL pen injector 12.5 mg subcut WEEKLY Qty: 6 0RF hydrocodone-acetaminophen 5-325 mg tablet 1 tablet PO Q6H PRN (Reason: pain) Qty: 60 0RF Follow-up/Referrals: Sim Quintana MD [Primary Care Provider, Family Practice]
== END 2025-05-07 13:05 | disposition home or self-care (01) ==
PROVIDERS: Emergency Provider Nurse Practitioner Family; PCP Family Medicine
DX: J22 Unspecified acute lower respiratory infection (principal); I50.32 Chronic diastolic (congestive) heart failure; E11.9 Type 2 diabetes mellitus without complications
CPT/HCPCS: 99213; G0463

== ENCOUNTER 2025-06-05 16:00 | Emergency (ER) | payer MEDICARE, BC, SELFPAY ==
--- NOTE | ~2025-06-05 | XR_ITS ---
EXAMINATION: XR hand RT min 3V, 06/05/2025 16:23 CDT HISTORY: fall pain/bruising right 1st finger/metacarpal COMPARISON: No comparisons available. Findings: Postsurgical changes noted of the first metacarpal carpal joint. Moderate degenerative changes of the distal interphalangeal joints. Soft tissues unremarkable. Impression: No acute fracture or malalignment. Reviewed, dictated and finalized at location A. Impression: No acute fracture or malalignment.
[2025-06-05 16:35] VITALS: BP 122/71; PULSE 113; RESP 16; TEMP 36.2; O2SAT 97
--- NOTE | 2025-06-05 16:49 | ED.UPPEXIN ---
HPI - Extremity Injury (Upper) General Chief Complaint: Extremity Problem,Nontraumatic Stated Complaint: rt thumb pain Time Seen by Provider: 06/05/25 16:49 Source: patient and RN notes reviewed Mode of arrival: ambulatory Limitations: no limitations History of Present Illness HPI narrative: 69-year-old female presents with concern for injury to the 1st digit of the right hand. Reports she fell yesterday and hurt the hand. Reports swelling and bruising. She denies decreased strength, sensation range of motion. Reports pain with range of motion. MD complaint: injury to: right and finger Related Data Home Medications ?Medication ?Instructions ?Recorded ?Confirmed ?Last Taken ?Type clonazepam 1 mg tablet 1 mg PO QID 07/29/19 02/24/25 Unknown History cranberry 500 mg capsule 500 mg PO BID 07/29/19 02/24/25 Unknown History esomeprazole magnesium 40 mg 40 mg PO DAILY 07/29/19 02/24/25 Unknown History capsule,delayed release (Nexium) fluoxetine 20 mg capsule (Prozac) 20 mg PO DAILY 07/29/19 02/24/25 Unknown History mesalamine 1.2 gram tablet,delayed 2.4 gm PO DAILY 07/29/19 02/24/25 Unknown History release (Lialda) cholecalciferol (vitamin D3) 50 1,000 unit PO DAILY 12/31/19 02/24/25 Unknown History mcg (2,000 unit) tablet nortriptyline 50 mg capsule 50 mg PO . q.h.s. 12/31/19 02/24/25 Unknown History furosemide 20 mg tablet (Lasix) 40 mg PO BID 11/07/21 02/24/25 Unknown History ferrous sulfate 325 mg (65 mg 325 mg PO BID 10/11/22 02/24/25 Unknown History iron) tablet (FeroSul) L.acid,ambar-B.animal,bifid,infant cap PO 11/12/23 02/24/25 Unknown History 50 billion cell capsule,delayed rel ([employer] [place] [employer] Probiotic) albuterol 90 mcg-budesonide 80 2 inh inhalation ONCE 02/24/25 02/24/25 Unknown History mcg/actuation HFA aerosol inhaler (Airsupra) fluticasone fur. 100 mcg-umeclid 1 inh inhalation DAILY 02/24/25 02/24/25 Unknown History 62.5 mcg-vilant 25 mcg inhalat.powder (Trelegy Ellipta) gabapentin 400 mg capsule 400 mg PO BID 02/24/25 02/24/25 Unknown History dupilumab 300 mg/2 mL subcutaneous mg subcut 05/07/25 Unknown History pen injector (Dupixent) insulin degludec 100 unit/mL (3 54 unit subcut DAILY 06/03/25 Unknown History mL) subcutaneous pen (Tresiba FlexTouch U-100 insulin) olopatadine 0.6 % nasal spray 2 spray intranasal BID 06/03/25 Unknown History Allergies Allergy/AdvReac Type Severity Reaction Status Date / Time Cephalosporins Allergy Mild Unknown Verified 06/03/25 13:09 Penicillins Allergy Mild Unknown Verified 06/03/25 13:09 amoxicillin Allergy Unknown Itching Verified 06/03/25 13:09 CYMBALTA Allergy Mild Unknown Uncoded 06/03/25 13:09 Review of Systems Review of Systems: CONSTITUTIONAL: Denies malaise, chills, sweats, or fever. SKIN: Denies rash or itching, open skin, laceration, abrasion, redness, warmth MUSCULOSKELETAL: Reports pain, swelling, bruising in the 1st digit of the right hand NEUROLOGIC: Denies numbness, weakness All systems reviewed & are unremarkable except as noted in HPI and below PMFSH Past Medical History Medical History Morbid obesity with BMI of 45.0-49.9, adult Trigger thumb of left hand Subluxation of carpometacarpal joint of left thumb, sequela Screening for diabetic retinopathy no diabetic retinopathy 10/16/2024. Breast cancer screening by mammogram normal mammogram 03/27/2024. Fatty liver diffuse fatty liver on abdominal ultrasound 12/06/2023 with gallstones. No liver cyst mentioned. AST 12 with AST 11 on 04/10/2024. GGT 12, AST 12, ALT 12 on 05/05/2025. 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 Chronic pain of left knee Morbid obesity with BMI of 50.0-59.9, adult Pharyngitis Leukocytosis Hemoglobin 12.3 with metamyelocytes 09/21/2021. Hemoglobin 12.8 on 04/20/2022. WBC 13.3 with hemoglobin 11.7, platelets 433 with 3% myelocytes on 10/03/2022. Hemoglobin 11.0 on 04/10/2024. WBC 11.1 on 05/05/2025. Vitamin B12 deficiency anemia (09/21/21) level low at 266 with goal greater than 400. Level normal at greater than 2000 with hemoglobin 11.7 on 10/03/2022. Level 1793 with hemoglobin 11.3 on 05/05/2025. Diastolic CHF, chronic Edema, peripheral Diabetes mellitus with hyperglycemia, with long-term current use of insulin Fasting glucose 150 with hemoglobin A1c 7.6 on 04/20/2022. Fasting glucose 151 with hemoglobin A1c 6.9 on 10/03/22. glucose 163 with hemoglobin A1c 6.7 on 01/24/2023. Fasting glucose 91 on 04/10/2024. Hemoglobin A1c 6.4 on 05/28/2024. Hemoglobin A1c 6.6 with a random glucose 102 on 09/30/2024. Fasting glucose 136 on 05/05/2025. Open toe wound Cellulitis of right leg Chronic right hip pain Body mass index (BMI) 40.0-44.9, adult (01/06/19) Persistent cough Shortness of breath Surgical History Surgical History Status post hip surgery right hip History of musculoskeletal system surgery Trapeziectomy with LRTI - 2014, partial resection left interphalangeal joint halux -2016, Left great toe surgery (resection recurrent spur and removal of bone behind joint - 2018 H/O dilation and curettage D&C removal of cervical and uterine benign polyp 2011 Hx of carpal tunnel repair 2006 H/O arthroscopy of knee Right knee - September 2004 Hx of repair of right rotator cuff 2001 Hx of repair of left rotator cuff 2002 Hx of breast biopsy Right breast punch biopsy (benign findings) in 1999 Hx of post-sterilization tuboplasty Hx of arthroscopy of knee Left knee - 1983 S/P tonsillectomy and adenoidectomy As a child Family History Family History Father Depression Hypertension Family history of alcoholism Acute myocardial infarction, Onset Age: 65 Sibling Depression Family history of migraine headaches Patient's sister is in good health Mother Family history of migraine headaches Family history of lymphoma, Onset Age: 65 Family history of lupus erythematosus Grandparent Family history of alcoholism Cerebrovascular accident, Onset Age: 80 Social History Social History Smoking status: Never smoker Alcohol intake: never Substance use: never Substance use type: does not use Lack of Transportation: No Lack of Food: Never True Current Housing: I Have Housing Concerned About Future Housing: No Difficulty Paying Gas/Electric Bills: No Difficulty Paying for Meds: No Currently Unemployed: No Education: Trade/Vocational Certificate Difficulty w/ Childcare or Family Care: No Comments At time of signature, agree with nursing past medical, surgical, social and family history. There is no relevant family history pertinent to the presenting complaint Exam Narrative: GENERAL: Well-appearing, well-nourished, and in no acute distress. HEAD: Normocephalic EYES: PERRLA, conjunctivae clear NECK: Supple. CHEST: Speaks in full sentences. No respiratory distress. HEART: Regular rate and rhythm. Normal and equal peripheral pulses. EXTREMITIES: 1st digit of right hand has grossly normal sensation. 4/5 strength with digit flexion, extension. Range of motion grossly normal. No clubbing, cyanosis. Mild edema noted, ecchymosis noted to the base of the digit. Tenderness the base of the digit. Skin intact. Normal digital cascade with flexion of fingers, median, ulnar and radial nerve intact. Normal sensation of each side of finger. Can perform 'okay' sign, 'cross over finger test of index and middle fingers' and 'thumbs up' sign. No scissoring. Normal thumb opposition. Good capillary refill and radial pulse. Distal capillary refill less than 3 seconds. Patient is right/left hand dominant SKIN: Warn, dry, intact, pink. No rash NEURO: Alert and oriented x3. PSYCH: Normal mood and affect Course Course Emergency Course: Patient is aware of diagnosis, understands and agrees to treatment plan. Anticipatory guidance given. Patient agrees to follow-up as directed and is aware of reasons to seek care at the emergency department. Portions of this record may have been created with voice recognition software Level of Care: Express Care Visit Vital Signs Vital signs: Vital Signs Temperature 97.2 F L 06/05/25 16:35 Pulse Rate 113 H 06/05/25 16:35 Respiratory Rate 16 06/05/25 16:35 Blood Pressure 122/71 06/05/25 16:35 Pulse Oximetry 97 06/05/25 16:35 Temperature 97.2 F L 06/05/25 16:35 Pulse Rate 113 H 06/05/25 16:35 Respiratory Rate 16 06/05/25 16:35 Blood Pressure 122/71 06/05/25 16:35 Pulse Oximetry 97 06/05/25 16:35 Reviewed. MDM - Extremity Injury (Upper) MDM Narrative Medical decision making narrative: Patients injury and pain is consistent with musculoskeletal etiology. No signs of neurological or vascular compromise on exam. Compartments and tissues are soft without signs of compartment syndrome. Pain is felt appropriate for further evaluation on an outpatient basis. Imaging Data My impression: Images reviewed, interpreted by radiologist, agree, see report. Radiologist's impression: EXAMINATION: XR hand RT min 3V, 06/05/2025 16:23 CDT HISTORY: fall pain/bruising right 1st finger/metacarpal COMPARISON: No comparisons available. Findings: Postsurgical changes noted of the first metacarpal carpal joint. Moderate degenerative changes of the distal interphalangeal joints. Soft tissues unremarkable. Impression: No acute fracture or malalignment. Critical Care Time Critical Care Time Critical Care Time: No Discharge Plan Discharge Clinical Impression: Hand sprain Patient Disposition: Home Condition: Stable Instructions: Hand Sprain (ED) Additional Instructions: Avoid activities that cause pain until the pain subsides. Ice to the area 20-30 minutes 4-6 times a day Elevate above heart Orthopedic splint as directed for comfort for the next 5-7 days Tylenol for pain Follow up with your primary care provider if the condition is not improving within 1 week. If the condition worsens with numbness, tingling, decrease sensation with weakness seek treatment in the emergency room immediately. Patient Language: Maori Prescriptions: No Action Dupixent Pen 300 mg/2 mL pen injector SUBCUT glucose 4 gram tablet,chewable 16 g PO Q15M PRN (Reason: hypoglycemia) Qty: 90 0RF Rx Instructions: until symptoms of low blood sugar are controlled levothyroxine [Synthroid] 137 mcg tablet 137 mcg PO DAILY Qty: 90 4RF Trelegy Ellipta 100-62.5-25 mcg blister with device 1 inh inhalation DAILY gabapentin 400 mg capsule 400 mg PO BID Airsupra 90-80 mcg/actuation HFA aerosol inhaler 2 inh inhalation ONCE Rx Instructions: as a single dose; may repeat up to 6 doses per day (12 inhalations) (DME) True Metrix Glucose Test Strip Strip See Rx Instructions .ROUTE .MEDSUPPLY Qty: 100 11RF Rx Instructions: use to check blood sugar 3 times daily cholecalciferol (vitamin D3) 50 mcg (2,000 unit) tablet 1,000 unit PO DAILY nortriptyline 50 mg capsule 50 mg PO . q.h.s. famotidine 20 mg tablet 20 mg PO QHS Qty: 90 3RF ferrous sulfate [FeroSul] 325 mg (65 mg iron) tablet 325 mg PO BID [employer] [place] [employer] Probiotic 50 billion cell capsule,delayed release(DR/EC) PO Baqsimi 3 mg/actuation spray,non-aerosol 3 mg intranasal ONCE Qty: 2 0RF Rx Instructions: as a single dose metformin 500 mg tablet extended release 24 hr 2,000 mg PO QACDINNER Qty: 360 3RF rosuvastatin 5 mg tablet 5 mg PO .twice weekly Qty: 90 1RF Rx Instructions: 5 mg twice weekly olopatadine 0.6 % spray,non-aerosol 2 spray intranasal BID Rx Instructions: administer into each nostril insulin degludec [Tresiba FlexTouch U-100] 100 unit/mL (3 mL) insulin pen 54 unit subcut DAILY Mounjaro 15 mg/0.5 mL pen injector 15 mg subcut WEEKLY Qty: 6 3RF cranberry 500 mg capsule 500 mg PO BID fluoxetine [Prozac] 20 mg capsule 20 mg PO DAILY esomeprazole magnesium [Nexium] 40 mg capsule,delayed release(DR/EC) 40 mg PO DAILY clonazepam 1 mg tablet 1 mg PO QID mesalamine [Lialda] 1.2 gram tablet,delayed release (DR/EC) 2.4 gm PO DAILY (DME) Insulin Syringe MicroFine 1 mL 27 gauge x 5/8 syringe See Rx Instructions .ROUTE .MEDSUPPLY Qty: 100 3RF Rx Instructions: use to take insulin furosemide [Lasix] 20 mg tablet 40 mg PO BID Rx Instructions: prescribed by county assessor methocarbamol 750 mg tablet 750 mg PO QID PRN (Reason: spasm) Qty: 360 3RF pramipexole 0.75 mg tablet 0.75 mg PO QHS Qty: 90 3RF amlodipine 5 mg tablet 5 mg PO DAILY Qty: 90 3RF (DME) lancets 33 gauge misc See Rx Instructions .ROUTE .MEDSUPPLY Qty: 100 11RF Rx Instructions: use to check blood sugar 3 times daily pen needle, diabetic 31 gauge x /16 needle See Rx Instructions .ROUTE .COMPLEX Qty: 200 11RF Dose Instruction: USE DIRECTED Rx Instructions: use four times daily as directed; tramadol 50 mg tablet See Rx Instructions PO Q6H PRN (Reason: pain) Qty: 360 1RF Rx Instructions: 1 or 2 tablets PO every 6 hours PRN; zolpidem 10 mg tablet 10 mg PO . Q.h.s. PRN (Reason: insomnia) Qty: 90 1RF hydrocodone-acetaminophen 5-325 mg tablet 1 tablet PO Q6H PRN (Reason: pain) Qty: 60 0RF irbesartan 300 mg tablet 300 mg PO DAILY Qty: 90 3RF Rx Instructions: replaces quinapril Follow-up/Referrals: Sim Quintana MD [Primary Care Provider, Family Practice] Time of Disposition: 16:56
== END 2025-06-05 17:03 | disposition home or self-care (01) ==
PROVIDERS: Emergency Provider Nurse Practitioner; PCP Family Medicine
DX: S63.91XA Sprain of unspecified part of right wrist and hand, initial encounter (principal); W19.XXXA Unspecified fall, initial encounter; K76.0 Fatty (change of) liver, not elsewhere classified; G60.0 Hereditary motor and sensory neuropathy; I50.9 Heart failure, unspecified; E11.9 Type 2 diabetes mellitus without complications; E66.01 Morbid (severe) obesity due to excess calories; Z68.42 Body mass index [BMI] 45.0-49.9, adult; Z79.4 Long term (current) use of insulin
CPT/HCPCS: 73130; 99213; G0463